=== PATIENT | male | born 1985 | race Caucasian/White ===

== ENCOUNTER 2016-10-09 12:50 | Emergency (ER) | payer OTHER ==
[~2016-10-09] VITALS: Ht 172.7 cm; Wt 100.0 kg
[2016-10-09] MEDS ORDERED: HYDROCODONE/ACETAMINOPHEN 5-325 MG TABLET PO ONE (13:30)
[2016-10-09] MEDS ORDERED: LIDOCAINE HCL/PF 1% 2 ML VIAL IM ONE (13:30)
[2016-10-09] MEDS ORDERED: CefTRIAXone SODIUM 1 GM/VIAL IM ONE (13:30)
[2016-10-09] MEDS ORDERED: BACITRACIN 0.9 GM PACKET OINTMENT TP ONE (13:30)
[2016-10-09 14:59] VITALS: BP 134/82
== END 2016-10-09 15:00 | disposition home or self-care (01) ==
LOC: EMS 12:52
DX: L03.031 Cellulitis of right toe (principal); L60.0 Ingrowing nail; L08.9 Local infection of the skin and subcutaneous tissue, unspecified
CPT/HCPCS: 96372; 99283; J0696; J3490